=== PATIENT | female | born 1960 | race Caucasian/White ===

== ENCOUNTER 2024-05-23 22:11 | Observation (INO) | payer MEDICARE, OTHER ==
--- NOTE | 2024-05-23 22:56 | ED ---
General Adult HPI - General Chief complaint: Extremity Injury, Lower Stated complaint: Septic knee Time Seen by Provider: 05/23/24 22:30 Source: patient, EMS, RN notes reviewed, old records reviewed Mode of arrival: EMS Limitations: no limitations - History of Present Illness Initial comments: 64-year-old female with past medical history remarkable for COPD, chronic left knee arthritis who presents emergency department complaining of left posterior knee pain. Has been ongoing for 1 day. States was somewhat acute when she was walking after showering at home. No history of orthopedic procedures on that knee. Also has a history of diabetes. Patient seen at [facility] prior to transfer here. Workup for other etiologies for the patient's knee pain including ultrasound for DVT which is negative [place], elevated CRP. Arthrocen tesis was performed by the ER physician there which revealed brown cloudy fluid without hemarthrosis making traumatic causes of knee pain less likely for the patient per the other ER physician. Sent out wound cultures for the patient. Patient was transferred here as they cannot definitively rule out septic joint based on findings of the arthrocentesis. Patient initiated on IV antibiotics cefepime as well as vancomycin. - Related Data Allergies Allergy/AdvReac Type Severity Reaction Status Date / Time aspirin Allergy Nausea & Verified 05/23/24 22:34 Vomiting morphine Allergy Anaphylaxis Verified 05/23/24 22:34 Penicillins Allergy Rash/Hives Verified 05/23/24 22:34 Review of Systems ROS Statement: Those systems with pertinent positive or pertinent negative responses have been documented in the HPI. Review of Systems: CONST: Denies fever EYES: Denies blurry vision ENT: Denies nasal congestion C/V: Denies Chest pain RESP: Denies shortness of breath GI: Denies abdominal pain : Denies dysuria SKIN: Endorses left knee pain MSK: Endorses left knee pain NEURO: Denies headache ROS Other: All systems not noted in ROS Statement are negative. Past Medical History History of Any Multi-Drug Resistant Organisms: None Reported Past Psychological History: Anxiety, Depression Smoking Status: Current every day smoker Past Alcohol Use History: None Reported General Exam - General Exam Comments Initial Comments: General: Appears in no acute distress. HEAD: Normal with no signs of head trauma. EYES: PERRLA, EOMI, conjunctiva normal, no discharge. ENT: Hearing grossly intact, normal oropharynx. RESPIRATORY: Clear breath sounds bilaterally. No wheezes, rales, or rhonchi. C/V: Regular rate and rhythm. S1 and S2 auscultated, no edema, peripheral pulses 2+ and intact throughout ABD: Abd is soft, nontender, nondistended EXT: Decreased range of motion of the left knee secondary to pain. Tenderness to palpation of the left lateral posterior aspect of the knee. No obvious swelling or edema. No obvious deformities. No obvious laxity. SKIN: No rashes or lesions observed on exposed skin. NEURO: ALert and Oriented x 4. Limitations: no limitations Course Vital Signs 05/23/24 05/23/24 22:18 22:54 Temperature 98.3 F Pulse Rate 65 Pulse Rate [ 60 School Clerk ] Respiratory 17 Rate Blood Pressure 142/97 O2 Sat by Pulse 98 Oximetry Medical Decision Making - Medical Decision Making Was pt. sent in by a medical professional or institution (, PA, DIRECTOR OF SERVICES, urgent care, hospital, or penitentiary...) When possible be specific @ -Transferred from [facility] for evaluation by orthopedics over concern for septic arthritis of the left knee joint Did you speak to anyone other than the patient for history (EMS, parent, family, police, friend...)? What history was obtained from this source @ -No Did you review nursing and triage notes (agree or disagree)? Why? @ -I reviewed and agree with nursing and triage notes Were old charts reviewed (outside hosp., previous admission, EMS record, old EKG, old radiological studies, urgent care reports/EKG's, penitentiary records)? Report findings @ -Reviewed charts from transferring facility [facility]. His x-ray result which shows joint effusion of the left knee. Also reviewed the note which showed bedside ultrasound not showing of the evidence of DVT. CRP elevation. Differential Diagnosis (chest pain, altered mental status, abdominal pain women, abdominal pain men, vaginal bleeding, weakness, fever, dyspnea, syncope, headache, dizziness, GI bleed, back pain, seizure, CVA, palpatations, mental health, musculoskeletal)? @ -Septic arthritis, DVT, arthritis, joint effusion. This list is not all inclusive. EKG interpreted by me (3pts min.). @ -None done X-rays interpreted by me (1pt min.). @ -None done CT interpreted by me (1pt min.). @ -None done U/S interpreted by me (1pt. min.). @ -Ultrasound negative for DVT What testing was considered but not performed or refused? (CT, X-rays, U/S, labs)? Why? @ -None What meds were considered but not given or refused? Why? @ -None Did you discuss the management of the patient with other professionals (professionals i.e. Dr., PA, DIRECTOR OF SERVICES, lab, RT, psych nurse, protective services social worker, hole puncher strap, teacher, branch lending officer, case fitter)? Give summary @ -Discussed with the admitting physician, Dr. De Leon of [facility] who covers for Dr. Ruiz who covers for for Dr. Beckford who accepted the admission. Was smoking cessation discussed for >3mins.? @ -No Was critical care preformed (if so, how long)? @ -No Were there social determinants of health that impacted care today? How? (Homelessness, low income, unemployed, alcoholism, drug addiction, transportation, low edu. Level, literacy, decrease access to med. care, prison, rehab)? @ -No Was there de-escalation of care discussed even if they declined (Discuss DNR or withdrawal of care, Hospice)? DNR status @ -No What co-morbidities impacted this encounter? (DM, HTN, Smoking, COPD, CAD, Ca ncer, CVA, ARF, Chemo, Hep., AIDS, mental health diagnosis, sleep apnea, morbid obesity)? @ -None Was patient admitted / discharged? Hospital course, mention meds given and route, prescriptions, significant lab abnormalities, going to OR and other pertinent info. @ -Presents over concern for septic arthritis of the left knee. This is based on the results of the arthrocentesis performed by the ER provider at [facility]. Cultures were sent and patient initiated on vancomycin and cefepime which will be continued here. Will repeat some laboratory studies. I will obtain a duplex ultrasound as family did a bedside there. Patient was in agreement this plan. She currently is resting comfortably. She will be made n.p.o. after midnight until orthopedic evaluates her tomorrow. Vital signs currently within acceptable limits. Ultrasound for DVT negative. Labs are unremarkable except for slightly elevated CRP of 1.8. Viral swabs and strep negative. Patient updated. Sugar was low on blood work however patient given food and was normal on recheck. Patient will be admitted at this time. She was in agreement this plan. Discussed with the admitting physician, Dr. De Leon of [facility] who covers for Dr. Ruiz who covers for for Dr. Beckford who accepted the admission. Undiagnosed new problem with uncertain prognosis? @ -No Drug Therapy requiring intensive monitoring for toxicity (Heparin, Nitro, Insulin, Cardizem)? @ -No Were any procedures done? @ -No Diagnosis/symptom? @ -Concern for septic arthritis of the left knee Acute, or Chronic, or Acute on Chronic? @ -Acute Uncomplicated (without systemic symptoms) or Complicated (systemic symptoms)? @ -Complicated Side effects of treatment? @ -None Exacerbation, Progression, or Severe Exacerbation] @ -No Poses a threat to life or bodily function? @ -Yes - Lab Data Result diagrams: 05/23/24 23:18 05/23/24 23:18 Lab Results 05/23/24 05/23/24 05/23/24 Range/Units 23:18 23:18 23:26 WBC 7.9 (3.8-10.6) k/uL RBC 4.12 (3.80-5.40) m/uL Hgb 12.6 (11.4-16.0) gm/dL Hct 39.1 (34.0-46.0) % MCV 95.0 (80.0-100.0) fL MCH 30.7 (25.0-35.0) pg MCHC 32.4 (31.0-37.0) g/dL RDW 13.4 (11.5-15.5) % Plt Count 228 (150-450) k/uL MPV 7.9 Neutrophils % 53 % Lymphocytes % 33 % Monocytes % 8 % Eosinophils % 5 % Basophils % 0 % Neutrophils # 4.2 (1.3-7.7) k/uL Lymphocytes # 2.6 (1.0-4.8) k/uL Monocytes # 0.6 (0-1.0) k/uL Eosinophils # 0.4 (0-0.7) k/uL Basophils # 0.0 (0-0.2) k/uL Hypochromasia Slight Sodium 140 (137-145) mmol/L Potassium 4.3 (3.5-5.1) mmol/L Chloride 109 H (98-107) mmol/L Carbon Dioxide 27 (22-30) mmol/L Anion Gap 4 mmol/L BUN 18 H (7-17) mg/dL Creatinine 0.74 (0.52-1.04) mg/dL Est GFR (CKD-EPI)AfAm >90 (>60 ml/min/1.73 sqM) Est GFR (CKD-EPI)NonAf 86 (>60 ml/min/1.73 sqM) Glucose 64 L (74-99) mg/dL Calcium 8.8 (8.4-10.2) mg/dL Total Bilirubin 0.6 (0.2-1.3) mg/dL AST 17 (14-36) U/L ALT 13 (4-34) U/L Alkaline Phosphatase 73 (38-126) U/L C-Reactive Protein 1.8 H (<1.0) mg/dL Total Protein 5.9 L (6.3-8.2) g/dL Albumin 3.6 (3.5-5.0) g/dL Influenza Type A (PCR) (Not Detectd) Influenza Type B (PCR) (Not Detectd) RSV (PCR) (Not Detectd) SARS-CoV-2 (PCR) (Not Detectd) Group A Strep (PCR) NOT DETECTED (Not Detectd) 05/23/24 Range/Units 23:26 WBC (3.8-10.6) k/uL RBC (3.80-5.40) m/uL Hgb (11.4-16.0) gm/dL Hct (34.0-46.0) % MCV (80.0-100.0) fL MCH (25.0-35.0) pg MCHC (31.0-37.0) g/dL RDW (11.5-15.5) % Plt Count (150-450) k/uL MPV Neutrophils % % Lymphocytes % % Monocytes % % Eosinophils % % Basophils % % Neutrophils # (1.3-7.7) k/uL Lymphocytes # (1.0-4.8) k/uL Monocytes # (0-1.0) k/uL Eosinophils # (0-0.7) k/uL Basophils # (0-0.2) k/uL Hypochromasia Sodium (137-145) mmol/L Potassium (3.5-5.1) mmol/L Chloride (98-107) mmol/L Carbon Dioxide (22-30) mmol/L Anion Gap mmol/L BUN (7-17) mg/dL Creatinine (0.52-1.04) mg/dL Est GFR (CKD-EPI)AfAm (>60 ml/min/1.73 sqM) Est GFR (CKD-EPI)NonAf (>60 ml/min/1.73 sqM) Glucose (74-99) mg/dL Calcium (8.4-10.2) mg/dL Total Bilirubin (0.2-1.3) mg/dL AST (14-36) U/L ALT (4-34) U/L Alkaline Phosphatase (38-126) U/L C-Reactive Protein (<1.0) mg/dL Total Protein (6.3-8.2) g/dL Albumin (3.5-5.0) g/dL Influenza Type A (PCR) Not Detected (Not Detectd) Influenza Type B (PCR) Not Detected (Not Detectd) RSV (PCR) Not Detected (Not Detectd) SARS-CoV-2 (PCR) Not Detected (Not Detectd) Group A Strep (PCR) (Not Detectd) Disposition Clinical Impression: Septic arthritis Disposition: ADMITTED IP TO THIS HOSP Condition: Stable Time of Disposition: 23:30
[2024-05-23 23:26] LABS: Basophils % (A) 0 %; Eosinophils # (A) 0.4 k/uL (0-0.7); Eosinophils % (A) 5 %; HCT 39.1 % (34.0-46.0); HGB 12.6 gm/dL (11.4-16.0); Hypochromasia Slight; Lymphocytes # (A) 2.6 k/uL (1.0-4.8); Lymphocytes % (A) 33 %; MCH 30.7 pg (25.0-35.0); MCHC 32.4 g/dL (31.0-37.0); Mean Platelet Volume 7.9; Monocytes # (A) 0.6 k/uL (0-1.0); Monocytes % (A) 8 %; Neutrophils # (A) 4.2 k/uL (1.3-7.7); Neutrophils % (A) 53 %; Platelet Count 228 k/uL (150-450); RBC 4.12 m/uL (3.80-5.40); RDW 13.4 % (11.5-15.5); WBC 7.9 k/uL (3.8-10.6)
--- NOTE | 2024-05-23 23:27 | US ---
EXAMINATION TYPE: US venous doppler duplex LE LT DATE OF EXAM: 05/23/2024 11:20 PM COMPARISON: NONE CLINICAL INDICATION: Female, 64 years old with history of eval for dvt; pain, edema, redness left kne e SIDE PERFORMED: left TECHNIQUE: The lower extremity deep venous system is examined utilizing real time linear array sonog sofi with graded compression, doppler sonography and color-flow sonography. VESSELS IMAGED: Common Femoral Vein Deep Femoral Vein Greater Saphenous Vein * Femoral Vein Popliteal Vein Small Saphenous Vein * Proximal Calf Veins (* superficial vessels) Left Leg: No evidence of DVT Grayscale, color doppler, spectral doppler imaging performed of the deep veins of the left lower extr emity. There is normal flow, compressibility, vascular waveforms. IMPRESSION: No ultrasound evidence for acute DVT in the left lower extremity.
[2024-05-23] MEDS ORDERED: VANCOMYCIN IV PER PHARMACY 1 EACH MISC MISCELLANE PRN (23:36)
[2024-05-23] MEDS ORDERED: ACETAMINOPHEN TAB 325 MG TAB PO PRN (23:38)
[2024-05-23] MEDS ORDERED: NALOXONE 0.4 MG/ML 1 ML VIAL IV PRN (23:38)
[2024-05-24 00:04] LABS: ALT 13 U/L (4-34); AST 17 U/L (14-36); African American GFR (CKD) >90 (>60 ml/min/1.73 sqM); Albumin 3.6 g/dL (3.5-5.0); Alkaline Phosphatase 73 U/L (38-126); Anion Gap 4 mmol/L; Blood Urea Nitrogen 18 mg/dL (7-17); C Reactive Protein 1.8 mg/dL (<1.0); Calcium 8.8 mg/dL (8.4-10.2); Carbon Dioxide 27 mmol/L (22-30); Chloride 109 mmol/L (98-107); Glucose 64 mg/dL (74-99); Non-African American GFR(CKD) 86 (>60 ml/min/1.73 sqM); Potassium 4.3 mmol/L (3.5-5.1); Sodium 140 mmol/L (137-145); Total Bilirubin 0.6 mg/dL (0.2-1.3); Total Protein 5.9 g/dL (6.3-8.2)
[2024-05-24] MEDS: SODIUM CHLORIDE 0.9% 1,000 ML IV STA (00:16)
[2024-05-24] MEDS: CEFEPIME 2 GM in SODIUM CHLORIDE 0.9% 100 ML IVPB SCH (00:49)
[2024-05-24] MEDS: HEPARIN SODIUM,PORCINE 5,000 UNIT/ML 1 ML VIAL SQ SCH (00:58)
[2024-05-24 01:11] LABS: Glucose,Whole Blood 155 mg/dL (70-110)
[2024-05-24] MEDS: VANCOMYCIN 1,750 MG in SODIUM CHLORIDE 0.9% 500 ML 500 ML IVPB ONE (01:37)
[2024-05-24 07:20] LABS: Basophils % (A) 0 %; Eosinophils # (A) 0.3 k/uL (0-0.7); Eosinophils % (A) 5 %; HCT 40.8 % (34.0-46.0); Hypochromasia Slight; Lymphocytes # (A) 1.7 k/uL (1.0-4.8); Lymphocytes % (A) 26 %; MCH 30.6 pg (25.0-35.0); MCHC 31.7 g/dL (31.0-37.0); MCV 96.4 fL (80.0-100.0); Mean Platelet Volume 7.8; Monocytes # (A) 0.5 k/uL (0-1.0); Monocytes % (A) 8 %; Neutrophils % (A) 60 %; Platelet Count 222 k/uL (150-450); RBC 4.24 m/uL (3.80-5.40); RDW 13.5 % (11.5-15.5); WBC 6.7 k/uL (3.8-10.6)
[2024-05-24 07:28] LABS: ALT 13 U/L (4-34); AST 17 U/L (14-36); African American GFR (CKD) >90 (>60 ml/min/1.73 sqM); Albumin 3.4 g/dL (3.5-5.0); Alkaline Phosphatase 70 U/L (38-126); Anion Gap 2 mmol/L; Blood Urea Nitrogen 14 mg/dL (7-17); Calcium 8.5 mg/dL (8.4-10.2); Carbon Dioxide 28 mmol/L (22-30); Chloride 110 mmol/L (98-107); Glucose 75 mg/dL (74-99); Non-African American GFR(CKD) 81 (>60 ml/min/1.73 sqM); Potassium 4.3 mmol/L (3.5-5.1); Sodium 140 mmol/L (137-145); Total Bilirubin 0.6 mg/dL (0.2-1.3); Total Protein 5.7 g/dL (6.3-8.2)
[2024-05-24 08:08] VITALS: TEMP 97.7
--- NOTE | 2024-05-24 11:28 | P.CNOR ---
History of Present Illness - [facility] Consult date: 05/24/24 Consult reason: joint pain (Left knee pain) History of present illness: The patient is a 64-year-old female who presented to the emergency department via transfer from [facility] for a possible left septic knee. The ER at [facility] aspirated her left knee and sent the fluid for cultures. The fluid was reported as brown. It was also reported that the fluid was not sent for cell count or differential but we are awaiting results from the hospital. The patient states that most of her pain is behind her knee but does have pain with full flexion. She denies any fevers or chills. No previous surgeries to this knee in the past. Orthopedics was consulted for further evaluation of the left knee. Review of Systems Constitutional: Denies chills, Denies fatigue, Denies fever Cardiovascular: Denies chest pain Respiratory: Denies cough Musculoskeletal: left: knee pain, knee stiffness, knee swelling Past Medical History History of Any Multi-Drug Resistant Organisms: None Reported Past Psychological History: Anxiety, Depression Smoking Status: Current every day smoker Past Alcohol Use History: None Reported Medications and Allergies Home Medications Medication Instructions Recorded Confirmed Type Atorvastatin [Lipitor] 40 mg PO DAILY 05/24/24 05/24/24 History Escitalopram [Lexapro] 30 mg PO HS 05/24/24 05/24/24 History Insulin Glargine,Hum.rec.anlog 40 units SQ DAILY 05/24/24 05/24/24 History [Lantus Solostar Pen] Multivitamins, Thera [Multivitamin 1 tab PO DAILY 05/24/24 05/24/24 History (formulary)] busPIRone HCl [Buspar] 10 mg PO HS 05/24/24 05/24/24 History busPIRone HCl [Buspar] 20 mg PO DAILY 05/24/24 05/24/24 History lamoTRIgine [LaMICtal] 100 mg PO HS 05/24/24 05/24/24 History lamoTRIgine [LaMICtal] 200 mg PO HS 05/24/24 05/24/24 History Allergies Allergy/AdvReac Type Severity Reaction Status Date / Time aspirin Allergy Nausea & Verified 05/24/24 09:41 Vomiting morphine Allergy Anaphylaxis Verified 05/24/24 09:41 Penicillins Allergy Rash/Hives Verified 05/24/24 09:41 Physical Examination The patient is a 64-year-old female in no acute distress. She is alert and oriented x 3. Exam of the left knee reveals mild swelling and moderate effusion present. No erythema or open wounds. There is ChloraPrep left on the skin from her previous aspiration. There is no pain on passive range of motion except for full flexion there is pain to the anterior knee. She is able to extend the knee fully with some pulling to the posterior lateral aspect. There is pain to palpation to the posterior lateral aspect of the knee. No masses noted. Calf is soft and nontender. Good foot and ankle motion present. Neurological and circulatory status is intact Results Doppler is negative for DVT Outside x-rays of the left knee were reviewed. There is tricompartmental osteoarthritis present. No acute fractures. - Labs Labs: Abnormal Lab Results - Last 24 Hours (Table) 05/23/24 05/24/24 05/24/24 Range/Units 23:18 01:10 06:43 Chloride 109 H 110 H (98-107) mmol/L BUN 18 H (7-17) mg/dL Glucose 64 L (74-99) mg/dL POC Glucose (mg/dL) 155 H (70-110) mg/dL C-Reactive Protein 1.8 H (<1.0) mg/dL Total Protein 5.9 L 5.7 L (6.3-8.2) g/dL Albumin 3.4 L (3.5-5.0) g/dL H & H 05/23/24 05/24/24 Range/Units 23:18 06:43 Hgb 12.6 13.0 (11.4-16.0) gm/dL Hct 39.1 40.8 (34.0-46.0) % Result Diagrams: 05/24/24 06:43 05/24/24 06:43 Assessment and Plan (1) Left knee pain Current Visit: Yes Status: Acute Code(s): M25.562 - PAIN IN LEFT KNEE SNOMED Code(s): 2397906371 (2) Primary osteoarthritis of left knee Current Visit: Yes Status: Acute Code(s): M17.12 - UNILATERAL PRIMARY OSTEOARTHRITIS, LEFT KNEE SNOMED Code(s): 218019512067753 Plan: The clinical and diagnostic findings were discussed with the patient and her at the bedside. The case was discussed at length with Dr. Guadalupe. We have a low suspicion for a septic joint at this time. We will await full labs from [facility]. We have no plans for surgical intervention at this time. Internal medicine has ordered steroids and we will see if that helps her pain. If her pain continues, she may benefit from a cortisone injection in the left knee joint. Continue pain control. We will continue to follow patient closely.
[2024-05-24 11:34] LABS: Erythrocyte Sedimentation Rate 42 mm/Hr (0-30)
[2024-05-24] MEDS ORDERED: KETOROLAC 15 MG/ML 1 ML VIAL IVP PRN (12:03)
[2024-05-24] MEDS ORDERED: IPRATROPIUM-ALBUTEROL 3 ML NEB INHALATION PRN (12:04)
--- NOTE | 2024-05-24 12:10 | P.HPIM ---
History of Present Illness 59-year-old female was transferred from [facility] for possible septic arthritis of the left knee although patient does have swelling does not have any increased redness or localized temperature and patient is able to move her leg active and passive movements are not restricted patient does have history of osteoarthritis. It appears patient had osteoarthritis rather than gouty arthritis or septic arthritis. Patient had arthrocentesis at the other facility although none of the labs from the arthrocentesis fluid are available at this time. Patient does not have any fever chills does not have leukocytosis. REVIEW OF SYSTEMS: All other systems are negative except those mentioned in the HPI PHYSICAL EXAMINATION: GENERAL: The patient is alert and oriented x3, not in any acute distress. Well developed, well nourished. HEENT: Pupils are round and equally reacting to light. EOMI. No scleral icterus. No conjunctival pallor. Normocephalic, atraumatic. No pharyngeal erythema. No thyromegaly. CARDIOVASCULAR: S1 and S2 present. No murmurs, rubs, or gallops. PULMONARY: Significant wheezing on exam ABDOMEN: Soft, nontender, nondistended, normoactive bowel sounds. No palpable organomegaly. MUSCULOSKELETAL: No joint swelling or deformity. EXTREMITIES: No cyanosis, clubbing, or pedal edema. NEUROLOGICAL: Gross neurological examination did not reveal any focal deficits. SKIN: No rashes. Assessment and plan -Left knee swelling: Probably severe osteoarthritis patient will benefit from Kenalog injection in the knee orthopedic surgery will evaluate the patient will try and find arthrocentesis labs from the other hospital. My clinical suspicion for septic arthritis or inflammatory arthritis is extremely low. Patient will be started on, steroids steroids will help her COPD. -COPD with acute exacerbation systemic steroids along with inhalational treatments patient does not have any significant bronchitis at this time -Depression -Hyperlipidemia -Type 2 diabetes mellitus for which patient is on Lantus blood sugars are expected to go up because of the steroids DVT prophylaxis: Lovenox Past Medical History History of Any Multi-Drug Resistant Organisms: None Reported Past Psychological History: Anxiety, Depression Smoking Status: Current every day smoker Past Alcohol Use History: None Reported Medications and Allergies Home Medications Medication Instructions Recorded Confirmed Type Atorvastatin [Lipitor] 40 mg PO DAILY 05/24/24 05/24/24 History Escitalopram [Lexapro] 30 mg PO HS 05/24/24 05/24/24 History Insulin Glargine,Hum.rec.anlog 40 units SQ DAILY 05/24/24 05/24/24 History [Lantus Solostar Pen] Multivitamins, Thera [Multivitamin 1 tab PO DAILY 05/24/24 05/24/24 History (formulary)] busPIRone HCl [Buspar] 10 mg PO HS 05/24/24 05/24/24 History busPIRone HCl [Buspar] 20 mg PO DAILY 05/24/24 05/24/24 History lamoTRIgine [LaMICtal] 100 mg PO HS 05/24/24 05/24/24 History lamoTRIgine [LaMICtal] 200 mg PO HS 05/24/24 05/24/24 History Allergies Allergy/AdvReac Type Severity Reaction Status Date / Time aspirin Allergy Nausea & Verified 05/24/24 09:41 Vomiting morphine Allergy Anaphylaxis Verified 05/24/24 09:41 Penicillins Allergy Rash/Hives Verified 05/24/24 09:41 Physical Exam Vitals: Vital Signs Temp Pulse Pulse Resp BP Pulse Ox 05/24/24 08:06 97.7 F 66 20 154/81 96 05/24/24 06:00 67 18 152/92 95 05/24/24 03:00 59 L 18 138/68 96 05/24/24 02:00 63 17 149/65 97 05/24/24 01:00 63 15 160/80 96 05/24/24 00:00 62 20 163/89 97 05/23/24 23:00 68 15 153/81 95 05/23/24 22:54 60 05/23/24 22:27 65 15 142/97 97 05/23/24 22:18 98.3 F 65 17 142/97 98 Intake and Output 05/23/24 05/24/24 05/24/24 22:59 06:59 14:59 Other: Weight 79.379 kg Results CBC & Chem 7: 05/24/24 06:43 05/24/24 06:43 Labs: Abnormal Lab Results - Last 24 Hours (Table) 05/23/24 05/23/24 05/24/24 Range/Units 23:18 23:18 01:10 ESR 42 H (0-30) mm/Hr Chloride 109 H (98-107) mmol/L BUN 18 H (7-17) mg/dL Glucose 64 L (74-99) mg/dL POC Glucose (mg/dL) 155 H (70-110) mg/dL C-Reactive Protein 1.8 H (<1.0) mg/dL Total Protein 5.9 L (6.3-8.2) g/dL Albumin (3.5-5.0) g/dL 05/24/24 Range/Units 06:43 ESR (0-30) mm/Hr Chloride 110 H (98-107) mmol/L BUN (7-17) mg/dL Glucose (74-99) mg/dL POC Glucose (mg/dL) (70-110) mg/dL C-Reactive Protein (<1.0) mg/dL Total Protein 5.7 L (6.3-8.2) g/dL Albumin 3.4 L (3.5-5.0) g/dL
[2024-05-24] MEDS: predniSONE 20 MG TAB PO SCH (12:54)
[2024-05-24] MEDS: PANTOPRAZOLE 40 MG/10 ML VIAL IVP SCH (12:59)
[2024-05-24 13:30] LABS: Glucose,Whole Blood 89 mg/dL (70-110)
[2024-05-24] MEDS: INSULIN ASPART (NovoLOG) 100 UNIT/ML VIAL SQ SCH (13:30)
[2024-05-24] MEDS: VANCOMYCIN 1,500 MG in SODIUM CHLORIDE 0.9% 500 ML 500 ML IVPB SCH (14:11)
--- NOTE | 2024-05-24 15:11 | P.DS ---
Providers Date of admission: 05/23/24 23:38 Attending physician: Madelaine De Leon MD Consults: 05/23/24 23:38 Consult Physician Routine Consulting Provider: Mauricio Guadalupe Consult Reason/Comments: transfer. concern for septic arthritis Do you want consulting provider notified?: Yes Primary care physician: [facility] Course: Final Diagnosis -Left knee swelling: Probably severe osteoarthritis patient will benefit from steroid injection in the knee orthopedic surgery will evaluate the patient will try and find arthrocentesis labs from the other hospital. My clinical suspicion for septic arthritis or inflammatory arthritis is extremely low. Patient will be started on inhaled steroids will help her COPD. -COPD with acute exacerbation systemic steroids along with inhalational treatments patient does not have any significant bronchitis at this time -Depression -Hyperlipidemia -Type 2 diabetes mellitus for which patient is on Lantus blood sugars are expected to go up because of the steroids Discharge Disposition Stable for discharge home overall guarded prognosis. Patient will continue on long acting bronchodilator as well as inhaled steroid for the COPD. Was given albuterol inhaler as needed. Patient to follow up with orthopedics in the office on discharge in 1 week. Hospital Course 64-year-old female was transferred from [facility] for possible septic arthritis of the left knee although patient does have swelling does not have any increased redness or localized temperature and patient is able to move her leg active and passive movements are not restricted patient does have history of osteoarthritis. It appears patient had osteoarthritis rather than gouty arthritis or septic arthritis. Patient had arthrocentesis at the other facility although none of the labs from the arthrocentesis fluid are available at this time. Patient does not have any fever chills does not have leukocytosis. Was evaluated by orthopedics and recommending to await the labs from the outside facility and patient may be considered for a steroid injection if the pain persists. Patient was also started on budesonide and albuterol for a suspected COPD exacerbation but is not having much wheezing noted at this time. After monitoring in the ER awaiting a bed on the medical floor patient does want to discharge home and complete a follow up outpatient. Her white blood cell count is normal at 6.7. She is not having any fever. Patient is afebrile and on room air. Please see medication reconciliation for a list of current medications. Thank you for allowing us to participate in the care of this patient. The impression and plan of care has been dictated by Kimberley Roper, Nurse Practitioner as directed. Dr. Benji MD I have performed a history and physical examination and medical decision making of this patient, discussed the same with the dictator, and agree with the dictators assessment and plan as written, documented as a scribe. Based on total visit time, I have performed more than 50% of this visit. Patient Condition at Discharge: Stable Plan - Discharge Summary New Discharge Prescriptions: New Famotidine [Pepcid] 20 mg PO DAILY #30 tablet Albuterol Inhaler [Ventolin Hfa Inhaler] 1 puff INHALATION QID PRN #8 gm PRN Reason: Shortness Of Breath Or Wheezing methylPREDNISolone Dose Pack [Medrol Dose Pack] 4 mg PO DIRECTED #21 tab Budesonide [Pulmicort] 0.5 mg INHALATION RT-BID #1 each Olodaterol HCl [Striverdi Respimat] 1 spray INHALATION DAILY #4 gm Continue busPIRone HCl [Buspar] 20 mg PO DAILY busPIRone HCl [Buspar] 10 mg PO HS Atorvastatin [Lipitor] 40 mg PO DAILY lamoTRIgine [LaMICtal] 100 mg PO HS Escitalopram [Lexapro] 30 mg PO HS Multivitamins, Thera [Multivitamin (formulary)] 1 tab PO DAILY Insulin Glargine,Hum.rec.anlog [Lantus Solostar Pen] 40 units SQ DAILY lamoTRIgine [LaMICtal] 200 mg PO HS Discharge Medication List Albuterol Inhaler [Ventolin Hfa Inhaler] 1 puff INHALATION QID PRN #8 gm 05/24/24 [Rx] Atorvastatin [Lipitor] 40 mg PO DAILY 05/24/24 [History] Budesonide [Pulmicort] 0.5 mg INHALATION RT-BID #1 each 05/24/24 [Rx] Escitalopram [Lexapro] 30 mg PO HS 05/24/24 [History] Famotidine [Pepcid] 20 mg PO DAILY #30 tablet 05/24/24 [Rx] Insulin Glargine,Hum.rec.anlog [Lantus Solostar Pen] 40 units SQ DAILY 05/24/24 [History] Multivitamins, Thera [Multivitamin (formulary)] 1 tab PO DAILY 05/24/24 [History] Olodaterol HCl [Striverdi Respimat] 1 spray INHALATION DAILY #4 gm 05/24/24 [Rx] busPIRone HCl [Buspar] 10 mg PO HS 05/24/24 [History] busPIRone HCl [Buspar] 20 mg PO DAILY 05/24/24 [History] lamoTRIgine [LaMICtal] 100 mg PO HS 05/24/24 [History] lamoTRIgine [LaMICtal] 200 mg PO HS 05/24/24 [History] methylPREDNISolone Dose Pack [Medrol Dose Pack] 4 mg PO DIRECTED #21 tab 05/24/24 [Rx] Follow up Appointment(s)/Referral(s): Bethel Beckford MD [Primary Care Provider] - 1-2 days Chantel Gonzalez NPC [Nurse Practitioner] - 1 Week Activity/Diet/Wound Care/Special Instructions: Complete oral prednisone taper Follow up with Orthopedics in the office in 1 to 2 weeks Continue budesonide inhaler and spiriva inhaler scheduled and albuterol inhaler as needed. Discharge Disposition: HOME SELF-CARE
[2024-05-24] MEDS: IPRATROPIUM-ALBUTEROL 3 ML NEB INHALATION SCH (15:52)
[2024-05-24 15:53] VITALS: BP 146/77; PULSE 82; RESP 16
[2024-05-24] MEDS ORDERED: BUDESONIDE 0.5 MG/2 ML NEBU INHALATION SCH (20:00)
[2024-05-24] MEDS ORDERED: busPIRone HCl 10 MG TAB PO SCH (21:00)
[2024-05-24] MEDS ORDERED: NON FORMULARY DRUG (Lamotrigine [Lamictal] 200 MG Tablet) PO SCH (21:00)
[2024-05-24] MEDS ORDERED: ESCITALOPRAM 10 MG TAB PO SCH (21:00)
[2024-05-24] MEDS ORDERED: lamoTRIgine 100 MG TAB PO SCH (21:00)
[2024-05-25] MEDS ORDERED: INSULIN DETEMIR (LEVEMIR) 100 UNIT/ML SYR SQ SCH (07:00)
[2024-05-25] MEDS ORDERED: ATORVASTATIN 40 MG TAB PO SCH (09:00)
[2024-05-25] MEDS ORDERED: busPIRone HCl 10 MG TAB PO SCH (09:00)
== END 2024-05-24 15:52 | disposition home or self-care (01) ==
LOC: EC 22:11 → 4SSUR 23:38
PROVIDERS: ADMIT Internal Medicine; ATTEND Internal Medicine
DX: J44.1 Chronic obstructive pulmonary disease with (acute) exacerbation (principal); M17.12 Unilateral primary osteoarthritis, left knee; E78.5 Hyperlipidemia, unspecified; F32.A Depression, unspecified; E11.9 Type 2 diabetes mellitus without complications; F17.200 Nicotine dependence, unspecified, uncomplicated; R79.82 Elevated C-reactive protein (CRP); Z11.52 Encounter for screening for COVID-19; Z11.59 Encounter for screening for other viral diseases; Z79.4 Long term (current) use of insulin; Z79.899 Other long term (current) drug therapy; Z88.0 Allergy status to penicillin; Z88.5 Allergy status to narcotic agent; Z88.6 Allergy status to analgesic agent
CPT/HCPCS: 36415; 87651; 80053 ×2; 85652; 85025 ×2; 86140; 87636; 93971; G0378 ×2; J3370; J1644; J0692; J7512; J2470; 96361; 96365; 96366; 96367; 96372; 96375; 99285

== ENCOUNTER 2024-09-12 10:16 | Emergency (ER) | payer MEDICARE, OTHER ==
[2024-09-12 10:38] VITALS: TEMP 98.5
--- NOTE | 2024-09-12 11:23 | ED ---
General Adult HPI - General Chief complaint: Anxiety Stated complaint: Anxiety Time Seen by Provider: 09/12/24 10:42 Source: patient, family, RN notes reviewed Mode of arrival: ambulatory Limitations: no limitations - History of Present Illness Initial comments: Patient is a 64-year-old female presenting to the emergency department with concerns for reaction to steroids. Patient did have upper respiratory infection that has been improving and was started on steroids 5 days ago. Patient only took these for 2 or 3 days and discontinued. Patient has dry mouth. Patient has some discomfort of her tongue and throat. Patient feels there may be a sli ght white coating on the tongue. Patient denies specific chest discomfort. Patient states she has been anxious and restless. - Related Data Home Medications Medication Instructions Recorded Confirmed Atorvastatin [Lipitor] 40 mg PO DAILY 05/24/24 05/24/24 Escitalopram [Lexapro] 30 mg PO HS 05/24/24 05/24/24 Insulin Glargine,Hum.rec.anlog 40 units SQ DAILY 05/24/24 05/24/24 [Lantus Solostar Pen] Multivitamins, Thera [Multivitamin 1 tab PO DAILY 05/24/24 05/24/24 (formulary)] busPIRone HCl [Buspar] 10 mg PO HS 05/24/24 05/24/24 busPIRone HCl [Buspar] 20 mg PO DAILY 05/24/24 05/24/24 lamoTRIgine [LaMICtal] 100 mg PO HS 05/24/24 05/24/24 lamoTRIgine [LaMICtal] 200 mg PO HS 05/24/24 05/24/24 Previous Rx's Medication Instructions Recorded Albuterol Inhaler [Ventolin Hfa 1 puff INHALATION QID PRN #8 gm 05/24/24 Inhaler] Budesonide [Pulmicort] 0.5 mg INHALATION RT-BID #1 each 05/24/24 Famotidine [Pepcid] 20 mg PO DAILY #30 tablet 05/24/24 Olodaterol HCl [Striverdi Respimat] 1 spray INHALATION DAILY #4 gm 05/24/24 methylPREDNISolone Dose Pack 4 mg PO DIRECTED #21 tab 05/24/24 [Medrol Dose Pack] Nystatin 100,000 Unit/ml Susp 5 ml PO QID #140 ml 09/12/24 [Mycostatin Oral Susp] Allergies Allergy/AdvReac Type Severity Reaction Status Date / Time aspirin Allergy Nausea & Verified 09/12/24 10:32 Vomiting morphine Allergy Anaphylaxis Verified 09/12/24 10:32 Penicillins Allergy Rash/Hives Verified 09/12/24 10:32 Review of Systems ROS Statement: Those systems with pertinent positive or pertinent negative responses have been documented in the HPI. ROS Other: All systems not noted in ROS Statement are negative. Constitutional: Denies: fever Eyes: Denies: eye pain ENT: Reports: as per HPI, throat pain Respiratory: Reports: as per HPI, cough Cardiovascular: Denies: chest pain Endocrine: Denies: fatigue Gastrointestinal: Denies: abdominal pain Psychiatric: Reports: as per HPI, anxiety Past Medical History Past Medical History: COPD, Diabetes Mellitus, Hyperlipidemia History of Any Multi-Drug Resistant Organisms: None Reported Past Surgical History: Orthopedic Surgery Past Psychological History: Anxiety, Depression Smoking Status: Current every day smoker Past Alcohol Use History: None Reported Past Drug Use History: None Reported General Exam Limitations: no limitations General appearance: alert, in no apparent distress Head exam: Present: normocephalic Eye exam: Present: normal appearance ENT exam: Present: other (There does appear to be minimal white coating of the tongue, otherwise normal oropharynx) Neck exam: Present: normal inspection Respiratory exam: Present: wheezes Cardiovascular Exam: Present: regular rate, normal rhythm Expanded Peripheral pulses: 2+: Radial (R), Radial (L), Dorsalis Pedis (R), Dorsalis Pedis (L) GI/Abdominal exam: Present: soft. Absent: tenderness Extremities exam: Present: normal inspection. Absent: pedal edema, calf t enderness Neurological exam: Present: alert, CN II-XII intact. Absent: motor sensory deficit Expanded Motor strength exam: RUE: 5, LUE: 5, RLE: 5, LLE: 5 Psychiatric exam: Present: normal affect, normal mood Skin exam: Present: normal color Course Vital Signs 09/12/24 10:33 Temperature 98.5 F Pulse Rate 86 Respiratory 18 Rate Blood Pressure 175/85 O2 Sat by Pulse 98 Oximetry EKG Findings - EKG Results: EKG: interpreted by ERMD, sinus rhythm, normal axis, normal QRS, normal ST/T Medical Decision Making - Medical Decision Making Was pt. sent in by a medical professional or institution ([facility] Cummings, [facility], urgent care, hospital, or assisted...) When possible be specific @ -No Did you speak to anyone other than the patient for history (EMS, parent, family, police, friend...)? What history was obtained from this source @ -Family is present helps provide history including concerns regarding recent steroid use Did you review nursing and triage notes (agree or disagree)? Why? @ -I reviewed and agree with nursing and triage notes Were old charts reviewed (outside hosp., previous admission, EMS record, old EKG, old radiological studies, urgent care reports/EKG's, assisted records)? Report findings @ -No old charts were reviewed Differential Diagnosis (chest pain, altered mental status, abdominal pain women, abdominal pain men, vaginal bleeding, weakness, fever, dyspnea, syncope, headach e, dizziness, GI bleed, back pain, seizure, CVA, palpatations, mental health, musculoskeletal)? @ -Differential Dizziness: Benign paroxysmal positional Vertigo, Meniere's disease, otitis media, acoustic neuroma, vertebrobasilar insufficiency, cerebellar stroke, encephalitis, hypovolemic, arrhythmia, coronary artery syndrome, anemia, this is not meant to be an all-inclusive list EKG interpreted by me (3pts min.). @ -As above X-rays interpreted by me (1pt min.). @ -Chest x-ray shows some mild hazy appearance diffusely CT interpreted by me (1pt min.). @ -None done U/S interpreted by me (1pt. min.). @ -None done What testing was considered but not performed or refused? (CT, X-rays, U/S, l abs)? Why? @ -None What meds were considered but not given or refused? Why? @ -None Did you discuss the management of the patient with other professionals (professionals i.e. EDY[facility] Cummings, [facility]TER, lab, RT, psych nurse, social services specialist, inside technical sales representative, teacher, nuclear medicine officer, vocational case manager)? Give summary @ -No Was smoking cessation discussed for >3mins.? @ -No Was critical care preformed (if so, how long)? @ -No Were there social determinants of health that impacted care today? How? (Homelessness, low income, unemployed, alcoholism, drug addiction, transportation, low edu. Level, literacy, decrease access to med. care, nursing home, rehab)? @ -No Was there de-escalation of care discussed even if they declined (Discuss DNR or withdrawal of care, Hospice)? DNR status @ -No What co-morbidities impacted this encounter? (DM, HTN, Smoking, COPD, CAD, Cancer, CVA, ARF, Chemo, Hep., AIDS, mental health diagnosis, sleep apnea, morbid obesity)? @ -Recent steroid use Was patient admitted / discharged? Hospital course, mention meds given and route, prescriptions, significant lab abnormalities, going to OR and other pertinent info. @ -Patient presents with concerns with anxiety and tongue problems possibly related to her steroid use. Patient given Ativan and symptom-free on reevaluation. Patient will be discharged with follow-up with her doctor and given prescription for nystatin. Patient also given additional Ativan to take home with her as needed. Patient and family updated on results and need for lowell se follow-up Undiagnosed new problem with uncertain prognosis? @ -No Drug Therapy requiring intensive monitoring for toxicity (Heparin, Nitro, Insulin, Cardizem)? @ -No Were any procedures done? @ -No Diagnosis/symptom? @ -Thrush, anxiety Acute, or Chronic, or Acute on Chronic? @ -Acute, acute Uncomplicated (without systemic symptoms) or Complicated (systemic symptoms)? @ -Default Side effects of treatment? @ -No Exacerbation, Progression, or Severe Exacerbation? @ -No Poses a threat to life or bodily function? How? (Chest pain, [place], [place], pneumonia, PE, COPD, DKA, ARF, appy, cholecystitis, CVA, Diverticulitis, Homicidal, Suicidal, threat to staff... and all critical care pts) @ -No - Lab Data Result diagrams: 09/12/24 11:42 09/12/24 11:42 Lab Results 09/12/24 09/12/24 09/12/24 Range/Units 11:42 11:42 11:42 WBC 11.4 H (3.8-10.6) k/uL RBC 4.76 (3.80-5.40) m/uL Hgb 14.5 (11.4-16.0) gm/dL Hct 44.5 (34.0-46.0) % MCV 93.4 (80.0-100.0) fL MCH 30.5 (25.0-35.0) pg MCHC 32.6 (31.0-37.0) g/dL RDW 13.1 (11.5-15.5) % Plt Count 231 (150-450) k/uL MPV 7.9 Neutrophils % 72 % Lymphocytes % 18 % Monocytes % 5 % Eosinophils % 3 % Basophils % 0 % Neutrophils # 8.2 H (1.3-7.7) k/uL Lymphocytes # 2.0 (1.0-4.8) k/uL Monocytes # 0.5 (0-1.0) k/uL Eosinophils # 0.4 (0-0.7) k/uL Basophils # 0.0 (0-0.2) k/uL PT 11.1 (10.0-12.5) sec INR 1.0 (<1.2) APTT 25.6 (22.0-30.0) sec Sodium 138 (137-145) mmol/L Potassium 4.2 (3.5-5.1) mmol/L Chloride 107 (98-107) mmol/L Carbon Dioxide 27 (22-30) mmol/L Anion Gap 4 mmol/L BUN 10 (7-17) mg/dL Creatinine 0.77 (0.52-1.04) mg/dL Est GFR (CKD-EPI)AfAm >90 (>60 ml/min/1.73 sqM) Est GFR (CKD-EPI)NonAf 81 (>60 ml/min/1.73 sqM) Glucose 148 H (74-99) mg/dL Plasma Lactic Acid Mike (0.7-2.0) mmol/L Calcium 9.2 (8.4-10.2) mg/dL Magnesium 2.1 (1.6-2.3) mg/dL Total Bilirubin 1.3 (0.2-1.3) mg/dL AST 18 (14-36) U/L ALT 22 (4-34) U/L Alkaline Phosphatase 86 (38-126) U/L Troponin I (0.000-0.034) ng/mL Total Protein 6.6 (6.3-8.2) g/dL Albumin 4.1 (3.5-5.0) g/dL Influenza Type A (PCR) (Not Detectd) Influenza Type B (PCR) (Not Detectd) RSV (PCR) (Not Detectd) SARS-CoV-2 (PCR) (Not Detectd) 09/12/24 09/12/24 09/12/24 Range/Units 11:42 11:42 11:42 WBC (3.8-10.6) k/uL RBC (3.80-5.40) m/uL Hgb (11.4-16.0) gm/dL Hct (34.0-46.0) % MCV (80.0-100.0) fL MCH (25.0-35.0) pg MCHC (31.0-37.0) g/dL RDW (11.5-15.5) % Plt Count (150-450) k/uL MPV Neutrophils % % Lymphocytes % % Monocytes % % Eosinophils % % Basophils % % Neutrophils # (1.3-7.7) k/uL Lymphocytes # (1.0-4.8) k/uL Monocytes # (0-1.0) k/uL Eosinophils # (0-0.7) k/uL Basophils # (0-0.2) k/uL PT (10.0-12.5) sec INR (<1.2) APTT (22.0-30.0) sec Sodium (137-145) mmol/L Potassium (3.5-5.1) mmol/L Chloride (98-107) mmol/L Carbon Dioxide (22-30) mmol/L Anion Gap mmol/L BUN (7-17) mg/dL Creatinine (0.52-1.04) mg/dL Est GFR (CKD-EPI)AfAm (>60 ml/min/1.73 sqM) Est GFR (CKD-EPI)NonAf (>60 ml/min/1.73 sqM) Glucose (74-99) mg/dL Plasma Lactic Acid Mike 1.4 (0.7-2.0) mmol/L Calcium (8.4-10.2) mg/dL Magnesium (1.6-2.3) mg/dL Total Bilirubin (0.2-1.3) mg/dL AST (14-36) U/L ALT (4-34) U/L Alkaline Phosphatase (38-126) U/L Troponin I <0.012 (0.000-0.034) ng/mL Total Protein (6.3-8.2) g/dL Albumin (3.5-5.0) g/dL Influenza Type A (PCR) Not Detected (Not Detectd) Influenza Type B (PCR) Not Detected (Not Detectd) RSV (PCR) Not Detected (Not Detectd) SARS-CoV-2 (PCR) Not Detected (Not Detectd) Disposition Clinical Impression: Thrush, Acute anxiety Disposition: HOME SELF-CARE Condition: Stable Instructions (If sedation given, give patient instructions): Generalized Anxiety Disorder (ED) Additional Instructions: Please do follow-up with your primary care physician beginning of the week. Return for difficulty breathing, fevers, weakness, worsening or changing symptoms, chest pain or shortness of breath, or any other concerns. Prescription sent to pharmacy. Prescriptions: Nystatin 100,000 Unit/ml Susp [Mycostatin Oral Susp] 5 ml PO QID #140 ml Is patient prescribed a controlled substance at d/c from ED?: No Referrals: Bethel Beckford MD [Primary Care Provider] - 1-2 days Time of Disposition: 13:20
[2024-09-12] MEDS: SODIUM CHLORIDE 0.9% 500 ML 500 ML IV STA (11:47)
[2024-09-12] MEDS: LORazepam 2 MG/ML INJ IV STA (11:48)
[2024-09-12 12:17] LABS: Basophils % (A) 0 %; Eosinophils # (A) 0.4 k/uL (0-0.7); Eosinophils % (A) 3 %; HCT 44.5 % (34.0-46.0); HGB 14.5 gm/dL (11.4-16.0); Lymphocytes % (A) 18 %; MCH 30.5 pg (25.0-35.0); MCHC 32.6 g/dL (31.0-37.0); MCV 93.4 fL (80.0-100.0); Mean Platelet Volume 7.9; Monocytes # (A) 0.5 k/uL (0-1.0); Monocytes % (A) 5 %; Neutrophils # (A) 8.2 k/uL (1.3-7.7); Neutrophils % (A) 72 %; Platelet Count 231 k/uL (150-450); RBC 4.76 m/uL (3.80-5.40); RDW 13.1 % (11.5-15.5); WBC 11.4 k/uL (3.8-10.6)
[2024-09-12 12:27] LABS: Partial Thromboplastin Time 25.6 sec (22.0-30.0); Prothrombin Time 11.1 sec (10.0-12.5)
[2024-09-12 12:42] LABS: ALT 22 U/L (4-34); African American GFR (CKD) >90 (>60 ml/min/1.73 sqM); Albumin 4.1 g/dL (3.5-5.0); Anion Gap 4 mmol/L; Blood Urea Nitrogen 10 mg/dL (7-17); Calcium 9.2 mg/dL (8.4-10.2); Carbon Dioxide 27 mmol/L (22-30); Chloride 107 mmol/L (98-107); Glucose 148 mg/dL (74-99); Non-African American GFR(CKD) 81 (>60 ml/min/1.73 sqM); Sodium 138 mmol/L (137-145); Total Bilirubin 1.3 mg/dL (0.2-1.3); Total Protein 6.6 g/dL (6.3-8.2)
[2024-09-12 12:44] LABS: AST 18 U/L (14-36); Alkaline Phosphatase 86 U/L (38-126); Magnesium 2.1 mg/dL (1.6-2.3); Potassium 4.2 mmol/L (3.5-5.1)
--- NOTE | 2024-09-12 12:46 | XR ---
EXAMINATION TYPE: XR chest 2V DATE OF EXAM: 09/12/2024 CLINICAL HISTORY: Weakness TECHNIQUE: Frontal and lateral views of the chest are obtained. COMPARISON: None FINDINGS: Prominence of the pulmonary interstitium could be chronic in nature although viral type pne umonia or atypical pneumonia is difficult to exclude. Correlate clinically. The cardiac silhouette si ze is within normal limits. The osseous structures are intact. IMPRESSION: Prominence of the pulmonary interstitium could be chronic in nature although viral type pneumonia or atypical pneumonia is difficult to exclude. Correlate clinically. [facility], , 09/12/2024 12:43 PM
[2024-09-12] MEDS: LORazepam 1 MG TAB PO STA (13:41)
[2024-09-12 13:49] VITALS: BP 154/97; PULSE 63; RESP 20
== END 2024-09-12 13:49 | disposition home or self-care (01) ==
LOC: EC 10:16
DX: B37.9 Candidiasis, unspecified (principal); F41.9 Anxiety disorder, unspecified; F32.A Depression, unspecified; F17.200 Nicotine dependence, unspecified, uncomplicated; Z88.6 Allergy status to analgesic agent; Z88.5 Allergy status to narcotic agent; Z88.0 Allergy status to penicillin; Z11.52 Encounter for screening for COVID-19
CPT/HCPCS: 36415; 93005; 80053; 83605; 83735; 84484; 85025; 85610; 85730; 87636; 71046; 99284; 96374; 96361 ×2; J2060